=== PATIENT | female | born 1975 | race Caucasian/White ===

== ENCOUNTER 2023-03-12 11:32 | Emergency (ER) | payer MEDICARE ==
[~2023-03-12] VITALS: Ht 160 cm; Wt 60.0 kg
[2023-03-12 11:41] VITALS: BP 145/96; TEMP 98.2
[2023-03-12 12:57] VITALS: PULSE 95
== END 2023-03-12 12:57 | disposition home or self-care (01) ==
LOC: COL.ER 11:32
DX: S90.32XA Contusion of left foot, initial encounter (principal); F17.200 Nicotine dependence, unspecified, uncomplicated; Z91.040 Latex allergy status; Z28.310 Unvaccinated for COVID-19; W20.8XXA Other cause of strike by thrown, projected or falling object, initial encounter